=== PATIENT | female | born 1980 | race Two or more races ===

== ENCOUNTER → 2024-11-16 | Outpatient (CLI) | payer MEDICAID, SELFPAY ==
--- NOTE | 2024-11-16 13:15 | XR_ITS ---
Examination: Screening digital mammography, bilateral Computer aided detection 3-D breast Tomosynthesis, bilateral Date and time of exam: November 16, 2024 1303 hours No priors Indication: Screening Technique: Nonmagnified MLO, CC views of the breasts to been obtained, reconstructed from 3-D Tomosynthesis images. R2 computer aided detection program utilized for evaluation of suspicious masses and/or abnormal calcifications. 3-D Tomosynthesis images obtained. Findings: Scattered areas of fibroglandular density. 6 mm nodule indistinct margins 12:00 position right breast 10 mm focal asymmetry 12:00 position left breast Impression: BI-RADS category II: Benign Findings. BI-RADS Category 0: Incomplete: Need additional imaging evaluation Recommend follow-up spot tomographic views of 6 mm nodule indistinct margins 12:00 position right breast Recommend follow-up spot tomographic views of 10 mm focal asymmetry 12:00 position left breast Recommend bilateral breast sonography follow-up to complete the workup.
== END | disposition home or self-care (01) ==
LOC: CDIM 12:54
PROVIDERS: PCP Physician Assistant; Referring Provider Physician Assistant; Visit Provider Physician Assistant
DX: Z12.31 Encounter for screening mammogram for malignant neoplasm of breast (principal); R92.323 Mammographic fibroglandular density, bilateral breasts; N63.15 Unspecified lump in the right breast, overlapping quadrants
CPT/HCPCS: 77063; 77067

== ENCOUNTER → 2024-12-21 | Outpatient (CLI) | payer MEDICAID, SELFPAY ==
--- NOTE | 2024-12-21 08:30 | XR_ITS ---
Examination: Breast ultrasound complete, bilateral Date and time of exam: December 21, 2024 0840 hours INDICATIONS: Mammogram November 16, 2024 6 mm nodule 12:00 position right breast 12:00 focal asymmetry left breast Technique: Real-time grayscale ultrasonographic imaging bilateral breasts, including all 4 quadrants as well as nipple retroareolar and axillary regions. Findings: Sonographic images right breast 12:00 nodule 4 x 4 millimeter circumscribed 12:00 cyst 6 x 7 mm Sonographic images left breast No cystic or solid mass IMPRESSION: BI-RADS Category 2: Benign findings
--- NOTE | 2024-12-21 09:00 | XR_ITS ---
Examination: Diagnostic digital mammography, bilateral Computer aided detection 3-D breast Tomosynthesis, bilateral Date and time of exam: December 21, 2024 0856 hours INDICATIONS: Mammogram November 16, 2024 6 mm nodule 12:00 position right breast 10 mm nodule 12:00 position left breast Technique: Nonmagnified MLO, CC views of the breasts to been obtained, reconstructed from 3-D Tomosynthesis images. R2 computer aided detection program utilized for evaluation of suspicious masses and/or abnormal calcifications. 3-D Tomosynthesis images obtained. Findings: Scattered areas of fibroglandular density No suspicious nodule confirm the the rest and the spot compression views Impression: BI-RADS category 2: Benign findings Return to yearly follow-up mammography.
== END | disposition home or self-care (01) ==
LOC: CDIM 08:21
DX: R92.323 Mammographic fibroglandular density, bilateral breasts (principal); N60.01 Solitary cyst of right breast
CPT/HCPCS: 76641; 77062; 77066; G0279